=== PATIENT | female | born 1975 | race Asian ===

== ENCOUNTER 2016-10-14 20:05 | Emergency (ER) | payer OTHER ==
[2016-10-15] MEDS ORDERED: PREDNISONE 20 MG TABLET PO ONE (02:42)
--- NOTE | 2016-10-15 02:45 | ER Document Report ---
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 States she saw an horticulture worker in her primary care physician who performed an MRI which was unrevealing. She has not been provided a treatment or given a diagnosis for her symptoms. She denies any prior history of these symptoms prior to this Jessica. No head trauma. Denies any focal weakness or numbness. No unsteadiness to her gait. Denies any incoordination. No head trauma. Nothing improves or worsens or symptoms. Unchanged since onset. Denies any pain. No headache, neck pain or fever. TRAVEL OUTSIDE OF THE [place] IN LAST 30 DAYS: No - Related Data Allergies/Adverse Reactions: No Known Allergies Allergy (Unverified 10/14/16 21:10) Past Medical History - General Information source: Patient - Social History Smoking Status: Never Smoker Chew tobacco use (# tins/day): No Frequency of alcohol use: None Drug Abuse: None Lives with: Spouse/Significant other Family History: Reviewed & Not Pertinent Patient has suicidal ideation: No Patient has homicidal ideation: No Neurological Medical History: Reports: Hx Migraine Past Surgical History: Reports: Hx Appendectomy Review of Systems - Review of Systems Notes: Constitutional: Negative for fever. HENT: Negative for sore throat. Eyes: Negative for visual changes. Cardiovascular: Negative for chest pain. Respiratory: Negative for shortness of breath. Gastrointestinal: Negative for abdominal pain, vomiting or diarrhea. Genitourinary: Negative for dysuria. Musculoskeletal: Negative for back pain. Skin: Negative for rash. Neurological: Negative for headaches, positive for vertigo. Negative for weakness or numbness 10 point ROS negative except as marked above and in HPI. Physical Exam - Vital signs Vitals: Temp Pulse Resp BP Pulse Ox 98.1 F 66 18 105/66 100 10/14/16 21:11 10/14/16 21:11 10/14/16 21:11 10/14/16 21:11 10/14/16 21:11 Interpretation: Normal Notes: PHYSICAL EXAMINATION: GENERAL: Well-appearing, well-nourished and in no acute distress. HEAD: Atraumatic, normocephalic. EYES: Pupils equal round and reactive to light, extraocular movements intact, sclera anicteric, conjunctiva are normal. ENT: nares patent, oropharynx clear without exudates. Moist mucous membranes. NECK: Normal range of motion, supple without lymphadenopathy LUNGS: Breath sounds clear to auscultation bilaterally and equal. No wheezes rales or rhonchi. HEART: Regular rate and rhythm without murmurs ABDOMEN: Soft, nontender, normoactive bowel sounds. No guarding, no rebound. No masses appreciated. EXTREMITIES: Normal range of motion, no pitting or edema. No cyanosis. NEUROLOGICAL: Face symmetric. Tongue protrudes midline. Extraocular motions intact. Pupils are 2 mm and equally reactive. Normal speech, normal gait. 5 out of 5 strength in both the distal and proximal upper and lower extremities bilaterally. Sensation is grossly intact throughout. Finger to nose testing normal. Pronator drift normal. PSYCH: Normal mood, normal affect. SKIN: Warm, Dry, normal turgor, no rashes or lesions noted. Course - Re-evaluation Re-evalutation: 10/15/16 05:22 Presentation of vertigo that appears most consistent with Mnire's disease. Patient has tenderness, fullness of the ears, fluid leaking from the ears, and intermittent vertigo all which is very consistent with this diagnosis. Patient has no abnormal findings on exam. Normal cerebellar testing, steady even gait. Able to walk on heels and toes. Normal proprioception. Patient is not an elevated risk for a cerebellar infarction given age, absence of significant risk factors. I do not believe neurologic imaging is indicated at this time based on physical examination and clinical history. She'll be started on steroids, chlorothiazide, and meclizine. ENT referral provided . At this time will discharge with return precautions and follow-up recommendations. Verbal discharge instructions given a the bedside and opportunity for questions given. Medication warnings reviewed. Patient is in agreement with this plan and has verbalized understanding of return precautions and the need for primary care follow-up in the next 24-72 hours. - Vital Signs Vital signs: Temp Pulse Resp BP Pulse Ox 98.1 F 73 16 105/63 99 10/14/16 21:11 10/15/16 02:56 10/15/16 02:56 10/15/16 02:56 10/15/16 02:56 Discharge - Discharge Clinical Impression: Mnire's disease Qualifiers: Laterality: bilateral Qualified Code(s): H81.03 - Meniere's disease, bilateral Condition: Good Disposition: HOME, SELF-CARE Additional Instructions: Your symptoms are consistent with Mnire's disease. Urethra and steroids for 7 days. Take as directed. Your also been started on medication, hydrochlorothiazide which is a diuretic. This is used to decrease the amount of fluid in her inner ears. I recommend a low-salt diet below 2000 mg total daily. Please follow-up with ENT at your earliest ability. Return if you develop focal weakness, numbness, severe headache, pass out, have persistent vomiting, or any other symptoms that are concerning to you. Prescriptions: RX: Hydrochlorothiazide 12.5 mg PO DAILY #30 tablet RX: Meclizine HCl [Antivert 25 mg Tablet] 25 mg PO TID PRN #21 tablet PRN Reason: RX: Prednisone [Deltasone 20 mg Tablet] 2 tab PO DAILY 7 Days Referrals: GIBRAN MEI MD [[facility]] - Follow up in 3-5 days
[2016-10-15 02:59] VITALS: BP 105/63
--- NOTE | 2016-10-15 07:56 | EKG REPORT ---
SEVERITY:- NORMAL ECG - SINUS RHYTHM : Confirmed by: Nallely Pino 15-Oct-2016 07:56:00
== END 2016-10-15 02:56 | disposition home or self-care (01) ==
LOC: ER 20:05
DX: H81.03 Meniere's disease, bilateral (principal); R42 Dizziness and giddiness; R53.1 Weakness; R51 Headache
CPT/HCPCS: 93005; 93010; 99284